=== PATIENT | male | born 1970 | race Caucasian/White ===

== ENCOUNTER 2018-12-13 19:45 | Emergency (ER) | payer OTHER, SELFPAY ==
[2018-12-13] VITALS (7 sets, daily range): BP systolic 125–153; BP diastolic 70–98; PULSE 75–84; RESP 11–18; TEMP 37.1–38.2; O2SAT 95–99
--- NOTE | 2018-12-13 20:26 | ED.GENADUL_ITS ---
Discharge Plan Disposition Patient Disposition: HOME Condition: Good Discharge Details Chief Complaint: Chest Pain Clinical Impression: Acute pericarditis Primary Care Provider: Lilibeth Fish ED Provider: Brock Pineda Meds and New Rx's Prescriptions: New ibuprofen 600 mg tablet 600 mg PO TID Qty: 90 RF: 0 colchicine 0.6 mg tablet 0.6 mg PO BID Qty: 60 RF: 0 Discontinued NO DAILY MEDICATIONS RF: 0 Discharge Instructions Instructions: Acute Pericarditis (ED) Additional Instructions: Cardiac echo has been ordered and you should hear from radiology as when to come in for the study. We will have care management help arrange for follow-up with primary care on Tuesday. Ibuprofen and colchicine as directed every day. Return to emergency department if you develop lightheadedness, fainting, shortness of breath, worsening chest pain, other concerns. Referrals: Lilibeth Fish MD [Primary Care Provider] - Medical Decision Making Patient is presenting with substernal chest pain that does not radiate anywhere. He has no associated symptoms and does not really feel short of breath just feels like he cannot take a deep breath. He has not had this previously. It started around 4:30 in the afternoon. It got worse after dinner. It is getting better now. Initial EKG is sinus rhythm at a rate of 85. There is no acute ST elevation or depression. Patient is low probability of PE. He does not have pleuritic chest pain. Saturations are fine. He PERCs out. Will obtain chest x-ray but I doubt pneumonia or pneumothorax. Clinically does not appear to be dissection or esophageal rupture. No evidence of pericarditis on EKG. Laboratory studies will be sent. Will calculate HEART score when troponin is back. Patient is given aspirin. He was ordered for nitroglycerin but when the nurse went to give it to him he had no pain. Chest x-ray is obtained and is negative. Laboratory studies are unremarkable. CBC, CMP, troponin, lipase are all normal. He has spiked a fever here. He had a cold week week and a half ago but was getting over. He does not feel like he is sick now. He is given Tylenol for the fever. Will get a repeat troponin and EKG in 3 hours. His HEART score is 2. Patient second EKG is sinus rhythm. And now has ST elevation that is convex in nature and looks like early repolarization in multiple leads. He appears to also have TX depression. He currently has no pain or symptoms. Second troponin is still pending. Possibility of pericarditis is entertained. Will discuss with cardiology at [facility]. Second troponin has come back negative. Case discussed and EKG reviewed with cardiology at [facility]. Agree that patient has acute viral pericarditis. Recommend sending sed rate and CRP for baseline. Start ibuprofen and colchicine. Patient has remained hemodynamically stable and has no pain here. I will arrange for him to get an outpatient echo later today or tomorrow. I will have him follow-up with his primary care on Tuesday. Return to ED if any syncope, lightheadedness, shortness of breath, worsening chest pain, other concerns. Lab Data Lab results reviewed: Yes I reviewed the patient's lab results. ECG Data Attestation: I personally reviewed and interpreted this ECG (s) as follows: Prior ECG tracings: not available for review Interpretation: EKG #1?sinus rhythm at 85. Normal axis and intervals. Voltage criteria for LVH and minor nonspecific ST changes. EKG #2?sinus rhythm at 78. Continues to have normal axis and intervals. Has convex ST elevation predominantly in I, aVL, V2 through V6. Less prominent in V1 and II. Appears to have some TX depression. HPI General Mode of arrival: ambulatory . Date/Time Provider Initiated Documentation: 12/13/18 19:58 . Limitations to Documentation: no limitations . Information obtained by: patient and family . HPI Narrative: Patient presents to ED for evaluation of chest pain. Pain does not radiate anywhere. It is substernal. It is hard for him to describe. He feels like he cannot take a deep breath because of the pain. He does not necessarily feel short of breath. There is no radiation of the pain. There is no nausea, lightheadedness, sweatin ess. Discomfort started in the afternoon and seem to get much worse after dinner. He has never had this previously. He denies being ill prior. He is very active. He does not smoke. He has no cardiac risk factors that he is aware of. Related Data Home Medications Medication Instructions Recorded Confirmed colchicine 0.6 mg PO BID #60 tab 12/14/18 ibuprofen 600 mg PO TID #90 tab 12/14/18 Previous Rx's Medication Instructions Recorded colchicine 0.6 mg PO BID #60 tab 12/14/18 ibuprofen 600 mg PO TID #90 tab 12/14/18 Allergies Allergy/AdvReac Type Severity Reaction Status Date / Time No Known Allergies Allergy Unverified 09/04/18 09:55 General Stated Complaint: Chest Pain VANESSA: 2 Review of Systems Constitutional Denies chills, Denies fatigue, Denies fever(s), Denies headache(s), Denies malaise, Denies poor appetite and Denies weakness Eyes Denies diplopia and Denies eye discharge ENT Denies otalgia, Denies headache(s), Denies nasal congestion, Denies neck pain and Denies sinus pain Cardiovascular Reports chest pain, Denies diaphoresis, Denies syncope, Denies rapid heart rate, Denies edema, Denies leg edema, Denies lightheadedness, Denies radiating jaw, neck or arm pain, Denies palpitations and Denies dyspnea Respiratory Denies chest congestion, Denies cough and Denies dyspnea Comments: Feels like he cannot take a deep breath Gastrointestinal Denies abdominal pain, Denies heartburn, Denies diarrhea, Denies nausea and Denies vomiting Genitourinary Denies dysuria and Denies flank pain Musculoskeletal Denies back pain, Denies neck pain and Denies numbness Integumentary/Breasts Denies erythema and Denies rash Neurologic Denies syncope, Denies headache(s), Denies focal weakness, Denies numbness and Denies weakness Endocrine Denies fatigue and Denies palpitations ON LICENSE OF [facility] Family History Mother Asthma Father Suicide Maternal Grandfather Parkinsons Prostate cancer Paternal Grandfather No problems noted. Maternal Grandmother Essential hypertension Heart disease Stroke Asthma Diabetes Paternal Grandmother No problems noted. Son No problems noted. Son No problems noted. Social History highest education level completed: Bachelor's degree current occupation: [employer]NAGER pets and animals: Yes pets and animals: cat(s) and dog(s) frequency: 3-4 times per week duration: 60-90 minutes/day Smoking and Tabacco status: Never alcohol intake: current alcohol intake frequency: 0-2 drinks per day Alcohol type: beer and wine substance use type: marijuana jeremias/yazidism: No preference special jeremias needs: No Exam Const General: cooperative, comfortable and no acute distress Orientation: alert and oriented x3 HENMT Head: normocephalic and atraumatic Mouth: moist mucous membranes Neck Neck: full ROM, trachea midline, supple and no JVD Chest Chest: no tenderness Resp Effort & Inspection: normal respiratory effort Auscultation: clear to auscultation bilaterally Cardio Rate: regular rate Rhythm: regular rhythm Heart Sounds: S1 normal and S2 normal Pulses: normal peripheral pulses GI Inspection: normal to inspection and non-distended Palpation: soft, not firm, no guarding and nontender Skin Rashes: no rashes Wounds: no wounds Neuro General: alert, oriented x3, no focal motor deficits and CN's II-XI intact bilaterally Extrem General: normal to inspection, no clubbing, cyanosis or edema, no pedal edema and no calf tenderness Course Vital Signs Temperature 99.3 F 12/13/18 19:58 Pulse 77 12/13/18 19:58 Respiratory Rate 18 12/13/18 19:58 Blood Pressure 153/98 H 12/13/18 19:58 Pulse Oximetry 99 12/13/18 19:58 Temperature 99.3 F 12/13/18 19:58 Temperature Source Temporal Artery Scan 12/13/18 19:58 Pulse 77 12/13/18 19:58 Respiratory Rate 18 12/13/18 19:58 Respiratory Effort Non-Labored 12/13/18 20:24 Blood Pressure 153/98 H 12/13/18 19:58 Blood Pressure Position Supine 12/13/18 19:58 Pulse Oximetry 99 12/13/18 19:58 Oxygen Delivery Method Room Air 12/13/18 19:58 Oxygen Flow Rate 0 12/13/18 19:58 Pain Level 5 12/13/18 20:24
[2018-12-13 20:37] LABS: Abs Immature Grans 0.02 k/cumm (0.0-0.09); Absolute Basophil Count 0.02 k/cumm (0.0-0.2); Absolute Eosinophil Count 0.16 k/cumm (0.0-0.7); Absolute Lymphocyte Count 2.27 k/cumm (1.2-3.4); Absolute Monocyte Count 0.48 k/cumm (0.11-0.7); Absolute Neutrophil Count 6.38 k/cumm (1.2-6.7); Basophils % 0.2; Eosinophils % 1.7; HCT 41.6 % (40.0-50.0); HGB 14.2 g/dL (13.5-17.5); Immature Grans % 0.2; Lymphocytes % 24.3; Mean Corp. HGB Concentration 34.1 g/dL (32.0-36.0); Mean Corpuscular Volume 87.8 fL (80-95); Mean Platelet Volume 9.9 fL (8.0-11.0); Monocytes % 5.1; Neutrophils % 68.5; Platelet Count 202 x1000/uL (130-400); RBC 4.74 m/cumm (4.50-6.00); RBC Distribution Width 12.3 % (11.8-14.1); White Blood Cell Count 9.33 k/cumm (4.4-10.8)
[2018-12-13] MEDS: Aspirin 81 MG CHEW 324 MG CH (20:45)
--- NOTE | 2018-12-13 20:57 | NUR.NOTE ---
Nursing Note: Pt off unit to XR. States his pain is now 2/10 and much better. no acute changes, will continue to monitor.
--- NOTE | 2018-12-13 21:00 | DI.RAD_ITS ---
SYMPTOMS/DIAGNOSIS: CHEST PAIN PA AND LATERAL CHEST: No priors. The heart is normal in size. The lungs are clear. The mediastinal structures and pleura appear intact. CONCLUSION: Normal chest.
[2018-12-13 21:04] LABS: ALT 25 U/L (12-78); AST 19 U/L (15-37); Albumin 3.9 g/dL (3.4-5.0); Alkaline Phosphatase 68 U/L (46-116); Anion Gap 7.8 mmol/L (3-11); BUN 13 mg/dL (7-18); Bilirubin, Total 0.6 mg/dL (0.2-1.0); CO2 29.2 mmol/L (21.0-32.0); CREATININE 1.13 mg/dL (0.70-1.30); Calcium 9.2 mg/dL (8.5-10.1); Chloride 104 mmol/L (98-107); ETHANOL BLOOD 31.8 mg/dL (<3); Glucose 90 mg/dL (70-100); Lipase 303 U/L (73-393); Potassium 3.8 mmol/L (3.5-5.1); Sodium 141 mmol/L (136-145); Total Protein 7.5 g/dL (6.4-8.2)
[2018-12-13 21:10] LABS: Troponin I < 0.02 ng/mL (0.00-0.06)
--- NOTE | 2018-12-13 21:21 | DI.VRAD_ITS ---
EXAM: XR Chest, 2 Views EXAM DATE/TIME: 12/13/2018 8:28 PM CLINICAL HISTORY: 48 years old, male; Pain; Chest pain; Type not specified TECHNIQUE: XR of the chest, 2 views. COMPARISON: No relevant prior studies available. FINDINGS: Lungs: Unremarkable. No consolidation. Pleural space: Unremarkable. No pleural effusion. No pneumothorax. Heart/Mediastinum: Unremarkable. No cardiomegaly. Bones/joints: Unremarkable. IMPRESSION: Negative for acute thoracic pathology. Dictated and Authenticated by: Philip Gonzalez MD. Ordering:AICHA Gutiérrez MD
[2018-12-13] MEDS: Acetaminophen 500 MG TAB 1000 MG PO (22:32)
[2018-12-14 00:01] LABS: Troponin I < 0.02 ng/mL (0.00-0.06)
[2018-12-14 00:38] LABS: C-Reactive Protein 0.09 mg/dL (0.0-0.3)
[2018-12-14] MEDS: Colchicine 0.6 MG TAB PO (00:42)
[2018-12-14] MEDS: Ibuprofen 600 MG TAB PO (00:42)
[2018-12-14 00:43] VITALS: BP 121/76; PULSE 84; RESP 18; O2SAT 97
[2018-12-14 01:22] LABS: ESR 7 MM/HR (0-15)
--- NOTE | 2018-12-14 08:48 | CMPROGNOTE_ITS ---
Care Management Progress Note 12/14-Dr. Pineda requested assistance with a [facility] f/u on Tuesday, 12/15 for pericarditis f/u. Dr. Pineda has also ordered an echo and it needs a prior auth per radiology. Referral for f/u faxed as well as request for [facility] to complete prior auth on echo. Dr. Pineda requested echo be done today or tomorrow.
== END 2018-12-14 01:10 | disposition home or self-care (01) ==
PROVIDERS: Emergency Provider Emergency Medicine; PCP Internal Medicine
DX: I30.9 Acute pericarditis, unspecified (principal)
CPT/HCPCS: 36415; 80053; 83690; 85652; 93005; 99285; 71046; 80320; 83735; 84484; 85025; 86140; 93010

== ENCOUNTER 2018-12-15 00:28 | Outpatient (CLI) | payer OTHER, SELFPAY ==
--- NOTE | 2018-12-15 12:36 | MERGE_ITS ---
*[facility]* *[facility]* [address] [place] [address] Date of study: 12/15/2018 Transthoracic Echocardiography M-mode, complete 2D, complete spectral Doppler, and color Doppler *STUDY CONCLUSIONS* Impressions: No pericardial effusion. Normal LV. Summary: 1. Left ventricle: The cavity size was normal. Wall thickness was normal. Systolic function was normal. The estimated ejection fraction was 60-65%. Wall motion was normal; there were no regional wall motion abnormalities. 2. Aortic root: The aortic root was at upper normal limits. 3. Right ventricle: The cavity size was normal. Wall thickness was normal. Systolic function was normal. 4. Pericardium, extracardiac: There was no pericardial effusion. *PATIENT PRESENTATION* Height: 177.8cm ((70in) ) S/D Pressure: 142 / 94 Weight: 70.3kg ((154.7lb) ) BSA: 1.86m^2 Test start time: 12:30 PM. Test stop time: 01:40 PM. PERFORMING Unknown PERFORMING [facility] ORDERING Brock Pineda Robert J [employer] Piper Collins CONSULTING Shar Copeland *PROCEDURE DATA* Procedure information: This study was interpreted by [facility]. Pertinent images and digital data are archived for permanent storage and are available for subsequent review. No prior study was available for comparison. Study status: Routine. Transthoracic echocardiography. M-mode, complete 2D, complete spectral Doppler, and color Doppler. A Transthoracic Echocardiogram was performed. Scanning was performed from the parasternal, apical, subcostal, and suprasternal notch acoustic windows. Images were obtained using an [email or web address] cardiac ultrasound machine. Study completion: The patient tolerated the procedure well. History: PMH: Pericarditis. *CARDIAC ANATOMY* Left ventricle: The cavity size was normal. Wall thickness was normal. Systolic function was normal. The estimated ejection fraction was 60-65%. Wall motion was normal; there were no regional wall motion abnormalities. Aortic valve: Trileaflet; normal thickness leaflets. Mobility was not restricted. Doppler: Transvalvular velocity was within the normal range. There was no stenosis. There was no significant regurgitation. VTI ratio of LVOT to aortic valve: 0.88. Valve area (VTI): 2.7cm^2. Indexed valve area (VTI): 1.5cm^2/m^2. Peak velocity ratio of LVOT to aortic valve: 0.86. Valve area (Vmax): 2.7cm^2. Indexed valve area (Vmax): 1.4cm^2/m^2. Mean velocity ratio of LVOT to aortic valve: 0.76. Valve area (Vmean): 2.3cm^2. Indexed valve area (Vmean): 1.3cm^2/m^2. Mean gradient (S): 2.9mm Hg. Peak gradient (S): 6.3mm Hg. Aorta: Aortic root: The aortic root was at upper normal limits. Ascending aorta: The ascending aorta was normal in size. Mitral valve: Structurally normal valve. Mobility was not restricted. Doppler: Transvalvular velocity was within the normal range. There was no evidence for stenosis. There was trivial regurgitation. Valve area by pressure half-time: 3.5cm^2. Indexed valve area by pressure half-time: 1.9cm^2/m^2. Peak gradient (D): 2.1mm Hg. Left atrium: The atrium was normal in size. Right ventricle: The cavity size was normal. Wall thickness was normal. Systolic function was normal. Pulmonic valve: Doppler: Transvalvular velocity was within the normal range. There was no evidence for stenosis. There was trivial regurgitation. Peak gradient (S): 4.8mm Hg. Tricuspid valve: Structurally normal valve. Doppler: Transvalvular velocity was within the normal range. There was no evidence for stenosis. There was no significant regurgitation. Pulmonary artery: Poorly visualized. Pulmonary systolic pressure was within the normal range. Right atrium: The atrium was normal in size. Pericardium: There was no pericardial effusion. Systemic veins: Inferior vena cava: The vessel was normal in size. The respirophasic diameter changes were in the normal range (greater than or equal to 50%), consistent with normal central venous pressure. Measurements Left ventricle Value Reference LV ID, ED, PLAX 5.0 cm 3.5 - 6.0 LV ID, ES, PLAX 3.3 cm 2.1 - 4.0 LV PW thickness, ED, PLAX 0.8 cm LV end-diastolic volume, 1-p A2C 120 ml LV ejection fraction, 1-p A2C 58 % LV end-diastolic volume, 1-p A4C 123 ml LV ejection fraction, 1-p A4C 57 % LV e', lateral 0.124 m/sec LV E/e', lateral 6 LV e', medial 0.106 m/sec LV E/e', medial 7 LV e', average 0.115 m/sec LV E/e', average 6 Ventricular septum Value Reference IVS thickness, ED, PLAX 0.9 cm LVOT Value Reference LVOT ID, A-P 2.0 cm LVOT area 3.1 cm^2 LVOT peak velocity, S 1.08 m/sec LVOT mean velocity, S 0.59 m/sec LVOT VTI, S 22.0 cm LVOT peak gradient, S 4.6 mm Hg LVOT mean gradient, S 1.8 mm Hg Stroke volume (SV), LVOT DP 68 ml Stroke index (SV/bsa), LVOT DP 36 ml/m^2 Aortic valve Value Reference Aortic valve peak velocity, S 1.3 m/sec Aortic valve mean velocity, S 0.78 m/sec Aortic valve VTI, S 25.0 cm Aortic mean gradient, S 2.9 mm Hg Aortic peak gradient, S 6.3 mm Hg VTI ratio, LVOT/AV 0.88 Aortic valve area, VTI 2.7 cm^2 Velocity ratio, peak, LVOT/AV 0.86 Aortic valve area, peak velocity 2.7 cm^2 Velocity ratio, mean, LVOT/AV 0.76 Aortic valve area, mean velocity 2.3 cm^2 Aortic valve area/bsa, mean velocity 1.3 cm^2/m^2 Aorta Value Reference Aortic root ID, ED 3.5 cm Ascending aorta ID, A-P, S 3.2 cm Left atrium Value Reference LA ID, A-P, ES 3.1 cm LA ID/bsa, A-P 1.7 cm/m^2 <=2.2 LA area, ES, A4C 16.5 cm^2 8.8 - 23.4 LA area, ES, A2C 20 cm^2 LA volume/bsa, S 33 ml/m^2 LA volume, ES, 2-p 52 ml LA volume/bsa, ES, 2-p 28 ml/m^2 LA/aortic root ratio 0.9 Mitral valve Value Reference Mitral E-wave peak velocity 0.72 m/sec Mitral A-wave peak velocity 0.57 m/sec Mitral deceleration time 218 ms 150 - 230 Mitral pressure half-time 63 ms Mitral peak gradient, D 2.1 mm Hg Mitral E/A ratio, peak 1.27 Mitral valve area, PHT, DP 3.5 cm^2 Pulmonary arteries Value Reference PA pressure, S, DP 25 mm Hg <=30 Tricuspid valve Value Reference Tricuspid regurg peak velocity 2.2 m/sec Tricuspid peak RV-RA gradient 20 mm Hg Systemic veins Value Reference Estimated CVP 10 mm Hg Right ventricle Value Reference RV pressure, S, DP 30 mm Hg <=30 Pulmonic valve Value Reference Pulmonic peak gradient, S 4.8 mm Hg Legend: (L) and (H) gretchen values outside specified reference range. I have personally reviewed the images and have reviewed and edited the reported findings. Electronically signed by More Zamudio 12/17/2018 12:17
== END 2018-12-15 00:48 ==
PROVIDERS: PCP Family Medicine; Visit Provider Emergency Medicine
DX: I30.9 Acute pericarditis, unspecified (principal); R07.9 Chest pain, unspecified
CPT/HCPCS: 93306

== ENCOUNTER 2022-03-23 03:06 | Outpatient (CLI) | payer OTHER, SELFPAY ==
[2022-03-23 13:04] LABS: Anion Gap 7.2 mmol/L (3-11); BUN 17 mg/dL (7-18); CO2 28.8 mmol/L (21.0-32.0); CREATININE 1.1 mg/dL (0.70-1.30); Calcium 8.7 mg/dL (8.5-10.1); Calculated LDL 112 mg/dL (<100); Chloride 106 mmol/L (98-107); Cholesterol 202 mg/dL (<200); Glucose 98 mg/dL (74-106); HDL Cholesterol 82 mg/dL (40-60); Potassium 4.3 mmol/L (3.5-5.1); Sodium 142 mmol/L (136-145); Triglyceride 40 mg/dL (<150)
== END 2022-03-23 03:07 | disposition home or self-care (01) ==
LOC: LOS 03:06
PROVIDERS: PCP Family Medicine; Visit Provider Family Medicine
DX: Z00.00 Encounter for general adult medical examination without abnormal findings (principal); Z13.220 Encounter for screening for lipoid disorders
CPT/HCPCS: 36415; 80048; 80061